=== PATIENT | female | born 1940 | race Caucasian/White ===

== ENCOUNTER 2023-06-28 18:17 | Emergency (ER) | payer MEDICARE, BC ==
[~2023-06-28] VITALS: Ht 152.4 cm; Wt 31.8 kg
[2023-06-28] MEDS ORDERED: HYDROCODONE/APAP 5/325MG TABLET PO ONE (20:00)
[2023-06-28] MEDS ORDERED: HYDROCODONE/APAP 5/325MG TABLET ONE (20:04)
[2023-06-28] MEDS ORDERED: HYDR-4209 PO (21:12)
[2023-06-28 22:26] VITALS: TEMP 98.4
[2023-06-28 22:27] VITALS: BP 126/46; O2SAT 99
[2023-07-01] MEDS ORDERED: HYDR-3980 PO (13:47)
== END 2023-06-28 22:16 | disposition home or self-care (01) ==
LOC: ER 18:28
DX: S82.091D Other fracture of right patella, subsequent encounter for closed fracture with routine healing (principal); S01.81XA Laceration without foreign body of other part of head, initial encounter; Z79.899 Other long term (current) drug therapy; Z88.0 Allergy status to penicillin; W01.0XXA Fall on same level from slipping, tripping and stumbling without subsequent striking against object, initial encounter; Y93.89 Activity, other specified; Y92.89 Other specified places as the place of occurrence of the external cause; Y99.8 Other external cause status
CPT/HCPCS: 70450-TC; 72125-TC; 73700-TC